=== PATIENT | female | born 1945 | race Caucasian/White ===

== ENCOUNTER 2022-01-12 20:29 | Emergency (ER) | payer MEDICARE ==
[2022-01-12] MEDS ORDERED: Oseltamivir 75 MG CAP ONE (21:54)
[2022-01-13 18:16] LABS: SARS-CoV-2 PCR by NAA Not Detected (NotDetected)
== END 2022-01-12 22:05 | disposition home or self-care (01) ==
LOC: MADERS 20:29
DX: J10.1 Influenza due to other identified influenza virus with other respiratory manifestations (principal); K21.9 Gastro-esophageal reflux disease without esophagitis; I10 Essential (primary) hypertension; Z79.899 Other long term (current) drug therapy; Z20.822 Contact with and (suspected) exposure to COVID-19
CPT/HCPCS: 87804 ×2; 99283; U0003; U0005

== ENCOUNTER 2022-01-17 11:11 | Emergency (ER) | payer MEDICARE ==
[2022-01-17] MEDS ORDERED: Ibuprofen 800 MG TAB ONE (12:12)
== END 2022-01-17 12:46 | disposition home or self-care (01) ==
LOC: MADERS 11:11
DX: J10.1 Influenza due to other identified influenza virus with other respiratory manifestations (principal); I10 Essential (primary) hypertension; K21.9 Gastro-esophageal reflux disease without esophagitis
CPT/HCPCS: 71045